=== PATIENT | female | born 1990 | race African-American/Black ===

== ENCOUNTER 2020-04-15 03:18 | Emergency (ER) | payer OTHER, SELFPAY ==
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
[2020-04-15 03:17] VITALS: BP 147/106; PULSE 106; RESP 28; TEMP 36.7; O2SAT 97
[2020-04-15] MEDS: ONDANSETRON INJ 4 MG/2 ML VIAL IV PUSH ×2 (04:16→07:37)
[2020-04-15] MEDS: HYDROmorphone HCL INJ (*CRX) 1 MG/ML SYR 0.5 MG IV PUSH (04:16)
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
[2020-04-15] MEDS: HYDROmorphone HCL INJ (*CRX) 1 MG/ML SYR IV PUSH ×2 (06:04→07:36)
[2020-04-15 06:15] VITALS: BP 130/83; PULSE 109; RESP 16; O2SAT 97
[2020-04-15 07:15] VITALS: BP 130/90; PULSE 95; RESP 20; O2SAT 96
[2020-04-15 09:26] VITALS: BP 137/99; PULSE 100; RESP 20; O2SAT 98
[2020-04-15 09:54] VITALS: BP 137/99; PULSE 98; RESP 20; O2SAT 99
== END 2020-04-15 09:56 | disposition short-term general hospital (02) ==
PROVIDERS: Emergency Provider General Practice
DX: S42.352A Displaced comminuted fracture of shaft of humerus, left arm, initial encounter for closed fracture (principal); T74.11XA Adult physical abuse, confirmed, initial encounter; F43.10 Post-traumatic stress disorder, unspecified; Y04.8XXA Assault by other bodily force, initial encounter; Y07.03 Male partner, perpetrator of maltreatment and neglect
CPT/HCPCS: 29105; 70486; 73060; 73080; 73110; 96374; 96375; 96376; 99285; A4565; J1170; J2405